=== PATIENT | male | born 1945 | race Asian ===

== ENCOUNTER → 2017-01-19 | Outpatient (CLI) | payer MEDICARE, MEDICAID | END | disposition home or self-care (01) | LOC: WOUND 13:49 | PROVIDERS: ATTEND Surgery | DX: E11.621 Type 2 diabetes mellitus with foot ulcer (principal); L97.421 Non-pressure chronic ulcer of left heel and midfoot limited to breakdown of skin; E11.610 Type 2 diabetes mellitus with diabetic neuropathic arthropathy; E11.40 Type 2 diabetes mellitus with diabetic neuropathy, unspecified; E11.22 Type 2 diabetes mellitus with diabetic chronic kidney disease; I12.9 Hypertensive chronic kidney disease with stage 1 through stage 4 chronic kidney disease, or unspecified chronic kidney disease; N18.9 Chronic kidney disease, unspecified; Z98.49 Cataract extraction status, unspecified eye; Z87.891 Personal history of nicotine dependence | CPT/HCPCS: G0463; WOU0463 ==

== ENCOUNTER → 2017-01-29 | Outpatient (CLI) | payer MEDICARE, MEDICAID | END | disposition home or self-care (01) | LOC: WOUND 13:59 | PROVIDERS: ATTEND Podiatrist Foot & Ankle Surgery | DX: E11.621 Type 2 diabetes mellitus with foot ulcer (principal); L97.521 Non-pressure chronic ulcer of other part of left foot limited to breakdown of skin; E11.40 Type 2 diabetes mellitus with diabetic neuropathy, unspecified; E11.22 Type 2 diabetes mellitus with diabetic chronic kidney disease; I12.9 Hypertensive chronic kidney disease with stage 1 through stage 4 chronic kidney disease, or unspecified chronic kidney disease; N18.9 Chronic kidney disease, unspecified; E11.610 Type 2 diabetes mellitus with diabetic neuropathic arthropathy; Z87.891 Personal history of nicotine dependence | CPT/HCPCS: 11042 ==

== ENCOUNTER → 2017-02-05 | Outpatient (CLI) | payer MEDICARE, MEDICAID | END | disposition home or self-care (01) | LOC: WOUND 13:38 | PROVIDERS: ATTEND Podiatrist Foot & Ankle Surgery | DX: E11.621 Type 2 diabetes mellitus with foot ulcer (principal); L97.511 Non-pressure chronic ulcer of other part of right foot limited to breakdown of skin; E11.40 Type 2 diabetes mellitus with diabetic neuropathy, unspecified; E11.22 Type 2 diabetes mellitus with diabetic chronic kidney disease; I12.9 Hypertensive chronic kidney disease with stage 1 through stage 4 chronic kidney disease, or unspecified chronic kidney disease; N18.9 Chronic kidney disease, unspecified; Z87.891 Personal history of nicotine dependence; Z72.89 Other problems related to lifestyle; Z98.49 Cataract extraction status, unspecified eye | CPT/HCPCS: G0463; WOU0463 ==

== ENCOUNTER 2017-05-22 17:31 | Inpatient (IN) | payer MEDICARE, MEDICAID ==
[~2017-05-22] VITALS: Ht 177.8 cm; Wt 89.1 kg
[2017-05-22] MEDS ORDERED: SODIUM CHLORIDE FLUSH 10ML SYR IVF ONE (18:00)
[2017-05-22 18:25] LABS: HEMATOCRIT 45.5 % (39.2-51.8); HEMOGLOBIN 15.2 g/dL (13.7-18.0); WHITE BLOOD COUNT 5.8 x10^3/uL (3.4-10)
[2017-05-22] MEDS ORDERED: ALBUTEROL/IPRATROPIUM 2.5MG/0.5MG, 3 ML NPPB ONE ×2 (18:30→20:30)
[2017-05-22 18:38] LABS: BLOOD UREA NITROGEN 19 mg/dL (7-18)
[2017-05-22 18:45] LABS: IS PT STATUS REG ER OR PRE ER? YES
[2017-05-22] MEDS ORDERED: methylPREDNISolone SOD SUCC 125 MG/2 ML ONE (20:22)
[2017-05-22] MEDS ORDERED: methylPREDNISolone SOD SUCC 125 MG/2 ML IVP ONE (20:30)
[2017-05-22 20:56] LABS: IS PT STATUS REG ER OR PRE ER? YES
[2017-05-22] MEDS ORDERED: ACETAMINOPHEN 325 MG TABLET PO PRN (22:00)
[2017-05-22] MEDS ORDERED: ONDANSETRON 2MG/ML, 2ML IVPush PRN (22:00)
[2017-05-22] MEDS ORDERED: ALBUTEROL/IPRATROPIUM 2.5MG/0.5MG, 3 ML NPPB PRN (22:00)
[2017-05-22] MEDS ORDERED: LORazepam 2 MG/ML, 1ML IVPush PRN (22:00)
[2017-05-22] MEDS ORDERED: hydrALAzine 20 MG/ML, 1ML IVPush PRN (22:00)
[2017-05-22] MEDS: methylPREDNISolone SOD SUCC 40 MG/ML IVPush SCH (22:09)
[2017-05-22] MEDS ORDERED: CEFTRIAXONE PMX 1GM/50ML 50 ML ONE (22:12)
[2017-05-22] MEDS: CEFTRIAXONE PMX 1GM/50ML 50 ML IVPB SCH (22:17)
[2017-05-22] MEDS: ENOXAPARIN 40 MG/0.4 ML SQ SCH (23:29)
[2017-05-22] MEDS: AZITHROMYCIN 500 MG in SODIUM CHLORIDE 0.9% 250 ML IV SCH (23:30)
[2017-05-23] MEDS ORDERED: INSU100V5 SQ-INSULIN (00:04)
[2017-05-23] MEDS ORDERED: ASPI-515 PO (00:04)
[2017-05-23] MEDS ORDERED: ATEN25TA PO (00:04)
[2017-05-23] MEDS ORDERED: METH25VI22 IM (00:04)
[2017-05-23] MEDS ORDERED: NPH,100V SQ-INSULIN ×3 (00:04→01:41)
[2017-05-23] MEDS ORDERED: ATEN1TAB3 PO (00:04)
[2017-05-23 00:06] VITALS: BP 191/89
[2017-05-23] MEDS ORDERED: INSU500V SQ-INSULIN ×2 (01:41)
[2017-05-23] MEDS ORDERED: OMNIPAQUE 350 MG/ML, 100ML BOTTLE ONE (02:46)
[2017-05-23 02:50] VITALS: BP 159/83
[2017-05-23] MEDS: methylPREDNISolone SOD SUCC 40 MG/ML IVPush SCH ×3 (06:16→22:03)
[2017-05-23 07:48] VITALS: BP 166/85
[2017-05-23] MEDS: INSULIN ASPART 100 UNITS/ML, PEN SQ-INSULIN SCH ×4 (07:55→22:19)
[2017-05-23] MEDS ORDERED: SODIUM CHLORIDE FLUSH 10ML SYR IVF SCH (09:00)
[2017-05-23 09:30] VITALS: BP 169/89
[2017-05-23 13:05] VITALS: BP 160/89
[2017-05-23 18:50] VITALS: BP 159/80
[2017-05-23] MEDS ORDERED: ACETAMINOPHEN 325 MG TABLET PO PRN (20:30)
[2017-05-23] MEDS ORDERED: ONDANSETRON 2MG/ML, 2ML IVPush PRN (20:30)
[2017-05-23] MEDS ORDERED: ATENOLOL 25 MG TABLET PO SCH (21:00)
[2017-05-23] MEDS: SODIUM CHLORIDE FLUSH 10ML SYR IVF SCH (21:00)
[2017-05-23] MEDS: CEFTRIAXONE PMX 1GM/50ML 50 ML IVPB SCH (22:03)
[2017-05-23] MEDS: ENOXAPARIN 40 MG/0.4 ML SQ SCH (22:19)
[2017-05-23] MEDS: INSULIN NPH HUMAN 100 UNIT/ML, 3ML VIAL SQ-INSULIN SCH (22:20)
[2017-05-23] MEDS: AZITHROMYCIN 500 MG in SODIUM CHLORIDE 0.9% 250 ML IV SCH (23:18)
[2017-05-24 02:32] VITALS: BP 149/80
[2017-05-24 05:45] LABS: HEMATOCRIT 45.6 % (39.2-51.8); HEMOGLOBIN 15.3 g/dL (13.7-18.0); WHITE BLOOD COUNT 8.6 x10^3/uL (3.4-10)
[2017-05-24 05:58] LABS: IS PT STATUS REG ER OR PRE ER? NO
[2017-05-24 06:01] LABS: BLOOD UREA NITROGEN 31 mg/dL (7-18)
[2017-05-24] MEDS ORDERED: ALBUTEROL/IPRATROPIUM 2.5MG/0.5MG, 3 ML NPPB PRN (06:30)
[2017-05-24] MEDS: methylPREDNISolone SOD SUCC 40 MG/ML IVPush SCH ×3 (06:30→22:36)
[2017-05-24 07:09] VITALS: BP 155/82
[2017-05-24] MEDS: INSULIN NPH HUMAN 100 UNIT/ML, 3ML VIAL SQ-INSULIN SCH ×3 (08:39→22:36)
[2017-05-24] MEDS: INSULIN ASPART 100 UNITS/ML, PEN SQ-INSULIN SCH ×4 (08:40→22:14)
[2017-05-24] MEDS: SODIUM CHLORIDE FLUSH 10ML SYR IVF SCH ×2 (08:40→22:12)
[2017-05-24] MEDS ORDERED: BUDESONIDE 0.5 MG/2 ML INHA INH SCH (09:00)
[2017-05-24] MEDS ORDERED: ALBUTEROL/IPRATROPIUM 2.5MG/0.5MG, 3 ML NPPB SCH (09:00)
[2017-05-24] MEDS ORDERED: ALBUTEROL SULFATE 2.5 MG/3 ML NPPB PRN (11:00)
[2017-05-24] MEDS: ALBUTEROL SULFATE 2.5 MG/3 ML NPPB SCH ×3 (11:00→21:00)
[2017-05-24 12:40] VITALS: BP 137/62
[2017-05-24 19:55] VITALS: BP 144/69
[2017-05-24] MEDS: CEFTRIAXONE PMX 1GM/50ML 50 ML IVPB SCH (22:12)
[2017-05-24] MEDS: ATENOLOL 50 MG TABLET PO SCH (22:13)
[2017-05-24] MEDS: ENOXAPARIN 40 MG/0.4 ML SQ SCH (22:19)
[2017-05-24] MEDS: AZITHROMYCIN 500 MG in SODIUM CHLORIDE 0.9% 250 ML IV SCH (23:16)
[2017-05-25 02:33] VITALS: BP 129/74
[2017-05-25] MEDS: methylPREDNISolone SOD SUCC 40 MG/ML IVPush SCH ×3 (06:30→21:44)
[2017-05-25 07:00] VITALS: BP 154/83
[2017-05-25] MEDS: INSULIN ASPART 100 UNITS/ML, PEN SQ-INSULIN SCH ×4 (08:00→22:13)
[2017-05-25] MEDS: GUAIFENESIN/DM 200-20MG, 10ML UDC PO SCH ×3 (08:00→16:18)
[2017-05-25] MEDS: ALBUTEROL SULFATE 2.5 MG/3 ML NPPB SCH ×3 (09:00→21:00)
[2017-05-25] MEDS: SODIUM CHLORIDE FLUSH 10ML SYR IVF SCH ×2 (09:29→21:44)
[2017-05-25] MEDS: INSULIN NPH HUMAN 100 UNIT/ML, 3ML VIAL SQ-INSULIN SCH ×2 (09:29→22:12)
[2017-05-25 12:22] VITALS: BP 151/84
[2017-05-25 20:00] VITALS: BP 152/81
[2017-05-25] MEDS ORDERED: GUAIFENESIN/DM 200-20MG, 10ML UDC PO SCH (20:00)
[2017-05-25] MEDS: ENOXAPARIN 40 MG/0.4 ML SQ SCH (21:45)
[2017-05-25] MEDS: CEFTRIAXONE PMX 1GM/50ML 50 ML IVPB SCH (21:45)
[2017-05-25] MEDS: ATENOLOL 50 MG TABLET PO SCH (21:45)
[2017-05-25] MEDS: AZITHROMYCIN 500 MG in SODIUM CHLORIDE 0.9% 250 ML IV SCH (23:38)
[2017-05-26 03:01] VITALS: BP 128/82
[2017-05-26] MEDS: methylPREDNISolone SOD SUCC 40 MG/ML IVPush SCH ×2 (06:28→14:00)
[2017-05-26] MEDS: INSULIN ASPART 100 UNITS/ML, PEN SQ-INSULIN SCH ×2 (07:00→11:00)
[2017-05-26 07:10] VITALS: BP 169/77
[2017-05-26] MEDS ORDERED: GUAI5SYR PO (07:17)
[2017-05-26] MEDS ORDERED: PRED20TA PO (07:17)
[2017-05-26] MEDS ORDERED: ALBU8.5H8 INH (07:17)
[2017-05-26] MEDS: ALBUTEROL SULFATE 2.5 MG/3 ML NPPB SCH ×2 (07:25→15:17)
[2017-05-26] MEDS: SODIUM CHLORIDE FLUSH 10ML SYR IVF SCH (09:00)
[2017-05-26] MEDS: INSULIN NPH HUMAN 100 UNIT/ML, 3ML VIAL SQ-INSULIN SCH (09:47)
[2017-05-26 10:46] VITALS: BP 133/72
[2017-05-26] MEDS ORDERED: FLU VACC QS2017-18 (36MOS+) UP/PF 0.5 ML IM-VACC ONE (15:00)
== END 2017-05-26 15:51 | disposition home or self-care (01) | DRG 189 ==
LOC: ED 20:03 → MERGE 20:03 → EDIP 21:43 → 4NOR 22:55 → DCLOUNGE 05-26 15:36
PROVIDERS: ADMIT Internal Medicine; ATTEND Internal Medicine
DX: J96.01 Acute respiratory failure with hypoxia (principal); J18.9 Pneumonia, unspecified organism; J84.10 Pulmonary fibrosis, unspecified; E11.42 Type 2 diabetes mellitus with diabetic polyneuropathy; E44.1 Mild protein-calorie malnutrition; J45.41 Moderate persistent asthma with (acute) exacerbation; M06.9 Rheumatoid arthritis, unspecified; E11.610 Type 2 diabetes mellitus with diabetic neuropathic arthropathy; I10 Essential (primary) hypertension; J40 Bronchitis, not specified as acute or chronic; M14.679 Charcot's joint, unspecified ankle and foot; M21.969 Unspecified acquired deformity of unspecified lower leg; Z79.4 Long term (current) use of insulin; Z83.3 Family history of diabetes mellitus
CPT/HCPCS: 36415; 71020; 71275; 80048; 82040; 82962; 83880; 84484; 85025; 90686; 93005; 93306; 94640; 96374; 96375; J0456; J0696; J1650; J1815; J7613; J7620; Q9967; J0360; J2920; J2930; J7050

== ENCOUNTER → 2018-03-16 | Outpatient (CLI) | payer MEDICARE, MEDICAID ==
[~2018-03-16] MED LIST: ALBU8.5H8 INH; ASPI-515 PO; ATEN1TAB3 PO; ATEN25TA PO; GUAI5SYR PO; INSU100V5 SQ-INSULIN; INSU500V SQ-INSULIN; LOSA25TA5 PO; METH25VI22 IM; NPH,100V SQ-INSULIN; PRED20TA PO; SPIR25TA5 PO
== END | disposition home or self-care (01) ==
LOC: RAD 13:32
PROVIDERS: ATTEND Internal Medicine Critical Care Medicine
DX: J98.4 Other disorders of lung (principal)
CPT/HCPCS: 71250

== ENCOUNTER → 2018-09-30 | Outpatient (CLI) | payer MEDICARE, MEDICAID ==
[~2018-09-30] MED LIST changes: +LOSA25TA25 PO; -LOSA25TA5 PO
== END | disposition home or self-care (01) ==
LOC: WOUND 10:08
PROVIDERS: ATTEND Podiatrist Foot & Ankle Surgery
DX: E11.621 Type 2 diabetes mellitus with foot ulcer (principal); L97.422 Non-pressure chronic ulcer of left heel and midfoot with fat layer exposed; L97.411 Non-pressure chronic ulcer of right heel and midfoot limited to breakdown of skin; E11.40 Type 2 diabetes mellitus with diabetic neuropathy, unspecified; E11.610 Type 2 diabetes mellitus with diabetic neuropathic arthropathy; I13.0 Hypertensive heart and chronic kidney disease with heart failure and stage 1 through stage 4 chronic kidney disease, or unspecified chronic kidney disease; E11.22 Type 2 diabetes mellitus with diabetic chronic kidney disease; N18.9 Chronic kidney disease, unspecified; I50.9 Heart failure, unspecified; L84 Corns and callosities; M06.9 Rheumatoid arthritis, unspecified; J45.909 Unspecified asthma, uncomplicated; I25.10 Atherosclerotic heart disease of native coronary artery without angina pectoris; Z79.4 Long term (current) use of insulin; Z87.891 Personal history of nicotine dependence; Z90.49 Acquired absence of other specified parts of digestive tract
CPT/HCPCS: 11042; 97597; G0463

== ENCOUNTER → 2018-10-07 | Outpatient (CLI) | payer MEDICARE, MEDICAID | END | disposition home or self-care (01) | LOC: WOUND 10:11 | PROVIDERS: ATTEND Podiatrist Foot & Ankle Surgery | DX: E11.621 Type 2 diabetes mellitus with foot ulcer (principal); L97.422 Non-pressure chronic ulcer of left heel and midfoot with fat layer exposed; L97.411 Non-pressure chronic ulcer of right heel and midfoot limited to breakdown of skin; E11.40 Type 2 diabetes mellitus with diabetic neuropathy, unspecified; E11.610 Type 2 diabetes mellitus with diabetic neuropathic arthropathy; I13.0 Hypertensive heart and chronic kidney disease with heart failure and stage 1 through stage 4 chronic kidney disease, or unspecified chronic kidney disease; E11.22 Type 2 diabetes mellitus with diabetic chronic kidney disease; N18.9 Chronic kidney disease, unspecified; I50.9 Heart failure, unspecified; L84 Corns and callosities; M06.9 Rheumatoid arthritis, unspecified; J45.909 Unspecified asthma, uncomplicated; I25.10 Atherosclerotic heart disease of native coronary artery without angina pectoris; Z79.4 Long term (current) use of insulin; Z87.891 Personal history of nicotine dependence; Z90.49 Acquired absence of other specified parts of digestive tract | CPT/HCPCS: 97597 ==